=== PATIENT | female | born 1990 | race Caucasian/White ===

== ENCOUNTER 2021-01-28 13:01 | Emergency (ER) | payer OTHER ==
[~2021-01-28] VITALS: Ht 170.2 cm; Wt 94.3 kg
--- NOTE | 2021-01-28 14:29 | REP ---
INDICATION: CHRONIC COUGH COMPARISON: None. TECHNIQUE: PA/Lateral FINDINGS: Lungs: Clear, no infiltrate. Heart: Normal in size. Mediastinum: Mediastinal silhouette unremarkable. Pleural angles: Unremarkable.. Bones and soft tissues: Unremarkable. IMPRESSION: No acute pulmonary disease. <Electronically signed by Servando Mohr > 01/28/21 [id number]
[2021-01-28] MEDS ORDERED: BENA25CA4 PO (16:30)
[2021-01-28] MEDS ORDERED: NAPROXEN 250 MG TAB PO ONE (17:10)
[2021-01-28] MEDS ORDERED: BENZONATATE 100 MG CAP PO ONE (17:10)
[2021-01-28] MEDS ORDERED: ALBUTEROL 90 MCG/ACT 8GM HFA INHALER INH ONE (17:10)
[2021-01-28] MEDS ORDERED: TESS100C PO (17:11)
[2021-01-28] MEDS ORDERED: PROAAER10 INH ×2 (17:11→18:07)
[2021-01-28] MEDS ORDERED: PSEU120T19 PO (17:11)
[2021-01-28] MEDS ORDERED: NAPR-885 PO (17:11)
[2021-01-28] MEDS ORDERED: FLON1SPR NARES (17:11)
[2021-01-28] MEDS ORDERED: ALL10TAB2 PO (17:11)
[2021-01-28] MEDS ORDERED: MUCI1TAB16 PO (18:07)
[2021-01-28 18:16] VITALS: BP 113/91
== END 2021-01-28 18:18 | disposition home or self-care (01) ==
LOC: M ED 13:01
DX: J06.9 Acute upper respiratory infection, unspecified (principal)

== ENCOUNTER → 2021-11-14 | Outpatient (CLI) | payer OTHER ==
[~2021-11-14] MED LIST: ALL10TAB2 PO; BENA25CA4 PO; FLON1SPR NARES; METHACHOLINE KIT (J7674) INH ONE; MUCI1TAB16 PO; NAPR-885 PO; PROAAER10 INH; PSEU120T19 PO; TESS100C PO
== END ==
LOC: M CARPUL 09:47
PROVIDERS: ATTEND Nurse Practitioner Adult Health
DX: R06.02 Shortness of breath (principal)

== ENCOUNTER → 2021-12-02 | Outpatient (CLI) | payer OTHER ==
[~2021-12-02] MED LIST changes: -METHACHOLINE KIT (J7674) INH ONE
== END ==
LOC: M RAD 09:15
PROVIDERS: ATTEND Nurse Practitioner Adult Health
DX: R06.02 Shortness of breath (principal)

== ENCOUNTER → 2022-04-11 | Outpatient (CLI) | payer OTHER | LOC: M PLAIMG 09:58 | PROVIDERS: ATTEND Physician Assistant | DX: M25.572 Pain in left ankle and joints of left foot (principal) ==

== ENCOUNTER 2022-04-24 13:14 | Inpatient (IN) | payer OTHER ==
[~2022-04-24] VITALS: Ht 167.6 cm; Wt 106.1 kg
[2022-04-24 17:52] LABS: HEMATOCRIT 39.1 % (36.0-47.0); HEMOGLOBIN 12.8 g/dl (12.0-15.5); MEAN CORPUSCULAR HGB CONC 32.7 g/dl (32.0-36.5); MEAN CORPUSCULAR VOLUME 91.6 fl (80.0-96.0); PLATELET COUNT, AUTOMATED 279 10^3/uL (150-450); RED BLOOD COUNT 4.27 10^6/uL (4.00-5.40); WHITE BLOOD COUNT 8.2 10^3/uL (4.0-10.0)
[2022-04-24 18:37] LABS: RSV AMPLIFICATION NEGATIVE (NEGATIVE)
[2022-04-24 18:45] LABS: ACETAMINOPHEN LEVEL < 2.0 UG/ML (10.0-30.0); ALBUMIN 4.5 GM/DL (3.2-5.2); ALT/SGPT 31 U/L (12-78); BILIRUBIN,DIRECT < 0.1 MG/DL (0.0-0.2); BILIRUBIN,TOTAL 0.4 MG/DL (0.2-1.0); BLOOD UREA NITROGEN 11 MG/DL (7-18); CALCIUM LEVEL 9.5 MG/DL (8.5-10.1); CARBON DIOXIDE LEVEL 25 MEQ/L (21-32); CHLORIDE LEVEL 103 MEQ/L (98-107); CREATININE FOR GFR 0.91 MG/DL (0.55-1.30); ETHYL ALCOHOL (ETHANOL) < 0.003 % (0.000-0.010); GLOMERULAR FILTRATION RATE > 60.0 (>60); GLUCOSE, FASTING 85 MG/DL (70-100); POTASSIUM SERUM 3.8 MEQ/L (3.5-5.1); SALICYLATE LEVEL < 1.7 MG/DL (5.0-30.0); SODIUM LEVEL 133 MEQ/L (136-145); THYROID STIMULATING HORMONE 0.813 uIU/ML (0.358-3.740); TOTAL PROTEIN 8.2 GM/DL (6.4-8.2)
[2022-04-24 18:52] LABS: HCG, SERUM QUALITATIVE NEGATIVE (NEGATIVE)
[2022-04-24 19:12] LABS: AMPHETAMINES LEVEL URINE NEGATIVE (NEGATIVE); BARBITURATES URINE NEGATIVE (NEGATIVE); BENZODIAZEPINES URINE NEGATIVE (NEGATIVE); CANNABINOIDS URINE NEGATIVE (NEGATIVE); COCAINE METABOLITE URINE NEGATIVE (NEGATIVE); METHADONE URINE NEGATIVE (NEGATIVE); OPIATES URINE NEGATIVE (NEGATIVE); PHENCYCLIDINE URINE NEGATIVE (NEGATIVE)
[2022-04-24] MEDS ORDERED: TRAZ-252 PO (19:13)
[2022-04-24] MEDS ORDERED: diphenhydrAMINE 25MG CAP PO ONE ×2 (21:10→22:55)
[2022-04-25] MEDS ORDERED: TRAZ-257 PO (09:19)
[2022-04-25] MEDS ORDERED: HOME MED LIST COMPLETE! XX SCH (09:20)
[2022-04-25] MEDS ORDERED: ALBUTEROL 90 MCG/ACT 8GM HFA INHALER INH PRN (15:15)
[2022-04-25] MEDS ORDERED: MAALOX 30 ML SUSP *UDC PO PRN (15:15)
[2022-04-25] MEDS ORDERED: MOM 30ML SUSPENSION UDC PO PRN (15:15)
[2022-04-25] MEDS ORDERED: ACETAMINOPHEN TAB 650MG DOSE (2X325MG) PO PRN (15:15)
[2022-04-25] MEDS ORDERED: METOCLOPRAMIDE 10MG TAB PO ONE (15:20)
[2022-04-25] MEDS ORDERED: KETOROLAC TROMETHAMINE 10 MG TAB PO ONE (15:20)
[2022-04-25 17:13] VITALS: BP 156/94
[2022-04-25] MEDS ORDERED: traZODone 50 MG TAB PO SCH (21:00)
[2022-04-25] MEDS ORDERED: diphenhydrAMINE 25MG CAP PO SCH (21:00)
[2022-04-26 06:26] VITALS: BP 157/87
[2022-04-26] MEDS ORDERED: diphenhydrAMINE 50MG CAP PO ONE (09:00)
[2022-04-26 14:22] VITALS: BP 132/84
[2022-04-26] MEDS: amLODIPine 5 MG TAB PO SCH (14:24)
[2022-04-26] MEDS: diphenhydrAMINE 50MG CAP PO SCH (18:24)
[2022-04-26] MEDS: traZODone 100 MG TAB PO SCH (21:46)
[2022-04-27 06:41] VITALS: BP 119/67
[2022-04-27] MEDS: amLODIPine 5 MG TAB PO SCH (08:43)
[2022-04-27] MEDS ORDERED: SERTRALINE HCL 25 MG TABLET PO SCH (09:00)
[2022-04-27] MEDS: CETIRIZINE (ZyrTEC) 10 MG TAB PO PRN (11:56)
[2022-04-27 16:19] VITALS: BP 131/78
[2022-04-27] MEDS: traZODone 100 MG TAB PO SCH (21:58)
[2022-04-27] MEDS: diphenhydrAMINE 50MG CAP PO SCH (21:58)
[2022-04-28] MEDS: SERTRALINE HCL 50 MG TAB PO SCH (09:33)
[2022-04-28] MEDS: amLODIPine 5 MG TAB PO SCH (09:33)
[2022-04-28 17:32] VITALS: BP 129/84
[2022-04-28] MEDS: traZODone 100 MG TAB PO SCH (22:25)
[2022-04-28] MEDS: diphenhydrAMINE 50MG CAP PO SCH (22:25)
[2022-04-29 06:03] VITALS: BP 115/53
[2022-04-29] MEDS: CETIRIZINE (ZyrTEC) 10 MG TAB PO PRN (09:37)
[2022-04-29] MEDS: SERTRALINE HCL 50 MG TAB PO SCH (09:37)
[2022-04-29] MEDS: amLODIPine 5 MG TAB PO SCH (09:38)
[2022-04-29 09:39] VITALS: BP 128/83
[2022-04-29] MEDS: hydrOXYzine 50 MG TAB PO PRN ×2 (14:02→21:59)
[2022-04-29 18:12] VITALS: BP 156/94
[2022-04-29] MEDS: diphenhydrAMINE 50MG CAP PO SCH (21:59)
[2022-04-29] MEDS: traZODone 50 MG TAB PO SCH (21:59)
[2022-04-30 06:54] VITALS: BP 116/58
[2022-04-30] MEDS: amLODIPine 5 MG TAB PO SCH (10:59)
[2022-04-30] MEDS: SERTRALINE 100 MG TAB PO SCH (10:59)
[2022-04-30] MEDS: hydrOXYzine 50 MG TAB PO PRN ×2 (13:13→22:19)
[2022-04-30 18:15] VITALS: BP 123/83
[2022-04-30] MEDS: traZODone 50 MG TAB PO SCH (22:19)
[2022-04-30] MEDS: diphenhydrAMINE 50MG CAP PO SCH (22:19)
[2022-05-01 06:24] VITALS: BP 107/56
[2022-05-01] MEDS ORDERED: ZOLO100T PO (08:30)
[2022-05-01] MEDS ORDERED: TRAZ-252 PO (08:30)
[2022-05-01] MEDS ORDERED: HYDR50TA70 PO (08:30)
[2022-05-01] MEDS ORDERED: AMLO1TAB24 PO (08:30)
[2022-05-01] MEDS: SERTRALINE 100 MG TAB PO SCH (08:47)
[2022-05-01] MEDS: amLODIPine 5 MG TAB PO SCH (08:47)
[2022-05-01 18:10] VITALS: BP 144/85
[2022-05-01] MEDS: hydrOXYzine 50 MG TAB PO PRN (21:34)
[2022-05-01] MEDS: diphenhydrAMINE 50MG CAP PO SCH (21:34)
[2022-05-01] MEDS: traZODone 50 MG TAB PO SCH (21:34)
[2022-05-02 06:30] VITALS: BP 115/57
[2022-05-02] MEDS: amLODIPine 5 MG TAB PO SCH (09:31)
[2022-05-02] MEDS: SERTRALINE 100 MG TAB PO SCH (09:31)
[2022-05-02] MEDS: hydrOXYzine 50 MG TAB PO PRN ×2 (14:13→20:47)
[2022-05-02 18:30] VITALS: BP 122/77
[2022-05-02] MEDS: traZODone 50 MG TAB PO SCH (20:47)
[2022-05-02] MEDS: diphenhydrAMINE 50MG CAP PO SCH (20:47)
[2022-05-03 06:41] VITALS: BP 112/61
[2022-05-03] MEDS: SERTRALINE 100 MG TAB PO SCH (09:56)
[2022-05-03] MEDS: amLODIPine 5 MG TAB PO SCH (09:56)
[2022-05-03] MEDS: hydrOXYzine 50 MG TAB PO PRN ×2 (15:09→22:15)
[2022-05-03 18:23] VITALS: BP 114/57
[2022-05-03] MEDS: traZODone 50 MG TAB PO SCH (22:15)
[2022-05-03] MEDS: diphenhydrAMINE 50MG CAP PO SCH (22:15)
[2022-05-04 06:44] VITALS: BP 124/58
[2022-05-04] MEDS: SERTRALINE 100 MG TAB PO SCH (10:09)
[2022-05-04] MEDS: amLODIPine 5 MG TAB PO SCH (10:10)
[2022-05-04] MEDS: hydrOXYzine 50 MG TAB PO PRN ×2 (10:10→21:57)
[2022-05-04 18:21] VITALS: BP 141/78
[2022-05-04] MEDS: diphenhydrAMINE 50MG CAP PO SCH (21:57)
[2022-05-04] MEDS: traZODone 50 MG TAB PO SCH (21:58)
[2022-05-05 06:23] VITALS: BP 121/58
[2022-05-05] MEDS: SERTRALINE 100 MG TAB PO SCH (08:49)
[2022-05-05] MEDS: hydrOXYzine 50 MG TAB PO PRN ×2 (08:52→21:55)
[2022-05-05] MEDS: amLODIPine 5 MG TAB PO SCH (08:52)
[2022-05-05] MEDS: DICLOFENAC EPOLAMINE 1.3 % PATCH TOP SCH ×2 (13:06→21:00)
[2022-05-05 16:22] VITALS: BP 116/70
[2022-05-05] MEDS: traZODone 50 MG TAB PO SCH (21:54)
[2022-05-05] MEDS: diphenhydrAMINE 50MG CAP PO SCH (21:55)
[2022-05-06 06:50] VITALS: BP 128/68
[2022-05-06 08:30] VITALS: BP 128/68
[2022-05-06] MEDS: hydrOXYzine 50 MG TAB PO PRN (08:30)
[2022-05-06] MEDS: DICLOFENAC EPOLAMINE 1.3 % PATCH TOP SCH (08:30)
[2022-05-06] MEDS: amLODIPine 5 MG TAB PO SCH (08:30)
[2022-05-06] MEDS: SERTRALINE 100 MG TAB PO SCH (08:30)
== END 2022-05-06 13:59 | disposition home or self-care (01) | DRG 885 ==
LOC: M ED 13:14 → M ED INP 04-25 16:35 → M PSY 04-25 17:12
PROVIDERS: ADMIT Psychiatry & Neurology Psychiatry; ATTEND Psychiatry & Neurology Psychiatry
DX: F32.2 Major depressive disorder, single episode, severe without psychotic features (principal); R45.851 Suicidal ideations; R03.0 Elevated blood-pressure reading, without diagnosis of hypertension; L50.9 Urticaria, unspecified; Z79.899 Other long term (current) drug therapy; Z20.822 Contact with and (suspected) exposure to COVID-19; Z63.4 Disappearance and death of family member; Z63.5 Disruption of family by separation and divorce; F41.1 Generalized anxiety disorder; F43.29 Adjustment disorder with other symptoms

== ENCOUNTER → 2022-07-24 | Outpatient (REF) ==
[~2022-07-24] MED LIST changes: +AMLO1TAB24 PO; +HYDR50TA70 PO; +TRAZ-252 PO; +TRAZ-257 PO; +ZOLO100T PO
== END ==
LOC: M PLAIMG 10:30
PROVIDERS: ATTEND Internal Medicine
DX: Z11.52 Encounter for screening for COVID-19 (principal)